=== PATIENT | male | born 1955 | race Caucasian/White ===

== ENCOUNTER 2016-11-24 07:09 | Observation (INO) | payer BC ==
[2016-11-24] MEDS ORDERED: NITROGLYCERIN OINT 1 INCH/GM PACKET TOPICAL STA (07:33)
[2016-11-24] MEDS ORDERED: IPRATROPIUM-ALBUTEROL 3 ML NEB INHALATION STA (07:33)
[2016-11-24] MEDS ORDERED: ASPIRIN 81 MG CHEW PO STA (07:33)
[2016-11-24] MEDS ORDERED: methylPREDNISolone SOD SUCCI 125 MG/2 ML VIAL IV STA (07:33)
--- NOTE | 2016-11-24 07:35 | ED ---
General Adult HPI - General Chief complaint: Chest Pain Stated complaint: chest tightness, sob Time Seen by Provider: 11/24/16 07:15 Source: patient, RN notes reviewed Mode of arrival: wheelchair Limitations: no limitations - History of Present Illness Initial comments: This is a 61-year-old male with past medical history significant for 40+ years of smoking. Patient comes into the emergency department today stating he has been having shortness of breath for approximately 1 month. Patient states over the last week he's been having intermittent chest pain which is something new for him. Patient describes the chest pain as a heaviness. Patient denies any radiation of the pain. Patient denies any diaphoresis. Patient denies any nausea with the pain. Patient states discomfort is currently here however it comes and goes and he does not notice it being associated with exercise. Patient states she's never felt this before and has what concerned him. Patient also complains of significant cough but no sputum production. Patient denies any fever chills. Patient denies any abdominal pain. Patient denies any lightheadedness dizziness or syncopal episode. Patient denies any headache patient denies numbness weakness. - Related Data Home Medications Medication Instructions Recorded Confirmed Aspirin [Adult Low Dose Aspirin EC] 81 mg PO DAILY 04/30/15 11/24/16 Atorvastatin [Lipitor] 80 mg PO HS 04/30/15 11/24/16 Clopidogrel [Plavix] 75 mg PO DAILY 04/30/15 11/24/16 Metoprolol Tartrate [Lopressor] 25 mg PO BID 04/30/15 11/24/16 Multivitamin [Men's Multi-Vitamin] 1 tab PO DAILY 04/30/15 11/24/16 Nitroglycerin Sl Tabs [Nitrostat] 0.4 mg SUBLINGUAL Q5M PRN 04/30/15 11/24/16 Previous Rx's Medication Instructions Recorded Albuterol Inhaler [Ventolin Hfa 2 puff INHALATION RT-Q6H PRN #1 04/30/15 Inhaler] inhaler Lisinopril [Zestril] 20 mg PO BID tab 04/30/15 Allergies Allergy/AdvReac Type Severity Reaction Status Date / Time Penicillins AdvReac Nausea & Verified 11/24/16 07:23 Vomiting Review of Systems ROS Statement: Those systems with pertinent positive or pertinent negative responses have been documented in the HPI. ROS Other: All systems not noted in ROS Statement are negative. Past Medical History Past Medical History: Chest Pain / Angina, COPD, GERD/Reflux, Hyperlipidemia, Hypertension, Myocardial Infarction ([place]) Additional Past Medical History / Comment(s): 04/30/15 Pt presented to [facility] ER with L mild, constane achy chest pain that radiated to L arm and he had associated dyspnea. Last Myocardial Infarction Date:: 05/02/13 History of Any Multi-Drug Resistant Organisms: MRSA Date of last positivie culture/infection: 2006 or 2007 MDRO Source:: face, nose, R arm sores Past Surgical History: Heart Catheterization With Stent, Orthopedic Surgery, Tonsillectomy Additional Past Surgical History / Comment(s): 05/02/13 PTCA with stent to RCA and LCX. R knee artrhroscopy. Past Anesthesia/Blood Transfusion Reactions: No Reported Reaction Date of Last Stent Placement:: 05/02/13 Past Psychological History: No Psychological Hx Reported Additional Psychological History / Comment(s): Pt lives alone. He is independent. He uses no assistive device. He drives a car. Smoking Status: Current every day smoker Past Alcohol Use History: None Reported Additional Past Alcohol Use History / Comment(s): Pt states he started smoking at age 12. He is a ppd smoker. Past Drug Use History: None Reported - Past Family History Father Family Medical History: Myocardial Infarction ([place]) Additional Family Medical History / Comment(s): Father of [place] at age 60 yrs. Mother Family Medical History: Dementia, Diabetes Mellitus Additional Family Medical History / Comment(s): Mother in her 80s General Exam - General Exam Comments Initial Comments: GENERAL: Patient is well-developed and well-nourished. Patient is nontoxic and well- hydrated and is in mild distress. ENT: Neck is soft and supple. No significant lymphadenopathy is noted. Oropharynx is clear. Moist mucous membranes. Neck has full range of motion without eliciting any pain. EYES: The sclera were anicteric and conjunctiva were pink and moist. Extraocular movements were intact and pupils were equal round and reactive to light. Eyelids were unremarkable. PULMONARY: Patient is diffusely wheezing. CARDIOVASCULAR: There is a regular rate and rhythm without any murmurs gallops or rubs. ABDOMEN: Soft and nontender with normal bowel sounds. No palpable organomegaly was noted. There is no palpable pulsatile mass. SKIN: Skin is clear with no lesions or rashes and otherwise unremarkable. NEUROLOGIC: Patient is alert and oriented x3. Cranial nerves II through XII are grossly intact. Motor and sensory are also intact. Normal speech, volume and content. Symmetrical smile. MUSCULOSKELETAL: Normal extremities with adequate strength and full range of motion. No lower extremity swelling or edema. No calf tenderness. LYMPHATICS: No significant lymphadenopathy is noted PSYCHIATRIC: Normal psychiatric evaluation. Normal interpersonal interactions appears functionally intact in deals appropriately with others. No signs of depression. No signs of anxiety. Limitations: no limitations Course Vital Signs 11/24/16 11/24/16 11/24/16 07:18 08:08 08:18 Temperature 97.0 F L Pulse Rate 89 80 88 Respiratory 18 Rate Blood Pressure 159/86 O2 Sat by Pulse 94 L Oximetry Medical Decision Making - Medical Decision Making EKG shows normal sinus rhythm at [address] interval is 150 QRS is 78 QT interval 344 QTC is 409 per patient's EKG shows no ST segment elevation or depression or T wave abnormalities are noted Chest x-ray shows no acute abnormality. Patient's received reading treatments and steroids he still wheezing I will give him another breathing treatment. I spoke with Dr. Hodges he agreed to admit the patient admitted the patient I wrote admitting orders. I will repeat cardiac enzymes. I also put the patient on oral antibiotics secondary to the fact that he states he is coughing up colored sputum for quite a while and it seems to be getting worse. - Lab Data Result diagrams: 11/24/16 07:20 11/24/16 07:20 Lab Results 11/24/16 11/24/16 11/24/16 Range/Units 07:20 07:20 07:20 WBC 6.7 (3.8-10.6) k/uL RBC 5.19 (4.30-5.90) m/uL Hgb 16.0 (13.0-17.5) gm/dL Hct 48.5 (39.0-53.0) % MCV 93.5 (80.0-100.0) fL MCH 30.8 (25.0-35.0) pg MCHC 32.9 (31.0-37.0) g/dL RDW 14.2 (11.5-15.5) % Plt Count 203 (150-450) k/uL Neutrophils % 61 % Lymphocytes % 21 % Monocytes % 6 % Eosinophils % 9 % Basophils % 1 % Neutrophils # 4.1 (1.3-7.7) k/uL Lymphocytes # 1.4 (1.0-4.8) k/uL Monocytes # 0.4 (0-1.0) k/uL Eosinophils # 0.6 (0-0.7) k/uL Basophils # 0.1 (0-0.2) k/uL PT (9.0-12.0) sec INR (<1.1) APTT (22.0-30.0) sec Sodium 135 L (137-145) mmol/L Potassium 4.4 (3.5-5.1) mmol/L Chloride 98 (98-107) mmol/L Carbon Dioxide 24 (22-30) mmol/L Anion Gap 13 mmol/L BUN 13 (9-20) mg/dL Creatinine 0.84 (0.66-1.25) mg/dL Est GFR (MDRD) Af Amer >60 (>60 ml/min/1.73 sqM) Est GFR (MDRD) Non-Af >60 (>60 ml/min/1.73 sqM) Glucose 146 H (74-99) mg/dL Calcium 9.6 (8.4-10.2) mg/dL Magnesium 2.1 (1.6-2.3) mg/dL Total Bilirubin 0.7 (0.2-1.3) mg/dL AST 26 (17-59) U/L ALT 33 (21-72) U/L Alkaline Phosphatase 65 (38-126) U/L Total Creatine Kinase 94 (55-170) U/L CK-MB (CK-2) 1.6 (0.0-2.4) ng/mL CK-MB (CK-2) Rel Index 1.7 Troponin I <0.012 (0.000-0.034) ng/mL Total Protein 7.4 (6.3-8.2) g/dL Albumin 4.5 (3.5-5.0) g/dL 11/24/16 Range/Units 07:20 WBC (3.8-10.6) k/uL RBC (4.30-5.90) m/uL Hgb (13.0-17.5) gm/dL Hct (39.0-53.0) % MCV (80.0-100.0) fL MCH (25.0-35.0) pg MCHC (31.0-37.0) g/dL RDW (11.5-15.5) % Plt Count (150-450) k/uL Neutrophils % % Lymphocytes % % Monocytes % % Eosinophils % % Basophils % % Neutrophils # (1.3-7.7) k/uL Lymphocytes # (1.0-4.8) k/uL Monocytes # (0-1.0) k/uL Eosinophils # (0-0.7) k/uL Basophils # (0-0.2) k/uL PT 10.0 (9.0-12.0) sec INR 1.0 (<1.1) APTT 25.8 (22.0-30.0) sec Sodium (137-145) mmol/L Potassium (3.5-5.1) mmol/L Chloride (98-107) mmol/L Carbon Dioxide (22-30) mmol/L Anion Gap mmol/L BUN (9-20) mg/dL Creatinine (0.66-1.25) mg/dL Est GFR (MDRD) Af Amer (>60 ml/min/1.73 sqM) Est GFR (MDRD) Non-Af (>60 ml/min/1.73 sqM) Glucose (74-99) mg/dL Calcium (8.4-10.2) mg/dL Magnesium (1.6-2.3) mg/dL Total Bilirubin (0.2-1.3) mg/dL AST (17-59) U/L ALT (21-72) U/L Alkaline Phosphatase (38-126) U/L Total Creatine Kinase (55-170) U/L CK-MB (CK-2) (0.0-2.4) ng/mL CK-MB (CK-2) Rel Index Troponin I (0.000-0.034) ng/mL Total Protein (6.3-8.2) g/dL Albumin (3.5-5.0) g/dL Disposition Clinical Impression: COPD with acute exacerbation, Bronchitis, acute, Chest pain Disposition: ADMITTED IP TO THIS [facility] Referrals: None,Stated [Primary Care Provider] - 1-2 days Time of Disposition: 09:10
[2016-11-24 08:13] LABS: Basophils # (A) 0.1 k/uL (0-0.2); Basophils % (A) 1 %; CH 31.1; CHCM 33.4; Eosinophils # (A) 0.6 k/uL (0-0.7); Eosinophils % (A) 9 %; HCT 48.5 % (39.0-53.0); HDW 2.49; Luc # (Auto) 0.15; Luc % (Auto) 2; Lymphocytes # (A) 1.4 k/uL (1.0-4.8); Lymphocytes % (A) 21 %; MCH 30.8 pg (25.0-35.0); MCHC 32.9 g/dL (31.0-37.0); MCV 93.5 fL (80.0-100.0); Mean Platelet Volume 6.6; Monocytes # (A) 0.4 k/uL (0-1.0); Monocytes % (A) 6 %; Neutrophils # (A) 4.1 k/uL (1.3-7.7); Neutrophils % (A) 61 %; RBC 5.19 m/uL (4.30-5.90); RDW 14.2 % (11.5-15.5); WBC 6.7 k/uL (3.8-10.6); WBC (Perox) 5.99
[2016-11-24 08:22] LABS: Partial Thromboplastin Time 25.8 sec (22.0-30.0)
[2016-11-24 08:30] LABS: ALT 33 U/L (21-72); AST 26 U/L (17-59); Alkaline Phosphatase 65 U/L (38-126); Anion Gap 13 mmol/L; Blood Urea Nitrogen 13 mg/dL (9-20); Calcium 9.6 mg/dL (8.4-10.2); Carbon Dioxide 24 mmol/L (22-30); Chloride 98 mmol/L (98-107); Glucose 146 mg/dL (74-99); Magnesium 2.1 mg/dL (1.6-2.3); Non-African American GFR(MDRD) >60 (>60 ml/min/1.73 sqM); Potassium 4.4 mmol/L (3.5-5.1); Sodium 135 mmol/L (137-145); Total Bilirubin 0.7 mg/dL (0.2-1.3); Total Protein 7.4 g/dL (6.3-8.2)
--- NOTE | 2016-11-24 08:40 | XR ---
EXAMINATION TYPE: XR chest 2V DATE OF EXAM: 11/24/2016 COMPARISON: Chest x-ray April 30, 2015. HISTORY: Difficulty in breathing for a few weeks. TECHNIQUE: Frontal and lateral views of the chest are obtained. FINDINGS: There is chronic parenchymal change without suspicious focal air space opacity, pleural ef fusion, or pneumothorax seen. The cardiac silhouette size is within normal limits. The osseous str uctures are intact. IMPRESSION: Chronic emphysematous change without acute pulmonary process.
[2016-11-24 08:45] LABS: Creatine Kinase 94 U/L (55-170)
[2016-11-24 08:57] LABS: Creatine Kinase MB 1.6 ng/mL (0.0-2.4); Troponin I <0.012 ng/mL (0.000-0.034)
[2016-11-24] MEDS ORDERED: IPRATROPIUM-ALBUTEROL 3 ML NEB INHALATION PRN (09:10)
[2016-11-24 09:48] VITALS: RESP 16; TEMP 97.8
[2016-11-24] MEDS ORDERED: methylPREDNISolone SOD SUCCI 125 MG/2 ML VIAL IV SCH (12:00)
[2016-11-24 13:10] VITALS: BP 140/71; PULSE 89
[2016-11-24] MEDS ORDERED: predniSONE 20 MG TAB PO STA (13:10)
--- NOTE | 2016-11-24 19:00 | HP ---
DATE OF ADMISSION: 11/24/2016 This dictation is both H&P and discharge summary. HISTORY AND PHYSICAL EXAMINATION/DISCHARGE SUMMARY: 61-year-old who came in with complaints of shortness of breath significantly resolved at this point of time. The patient is having significant shortness of breath for about a week. Patient continues to smoke. The patient stopped smoking, only smoking 1 or 2 cigarettes per day since his illness. Patient will try and quit smoking. Extensive counselling was provided regarding that. Patient is feeling better at this point of time. We are ambulating in the hallway. If he is doing okay, the patient will be discharged today on weaning dose of steroids. The patient chest x-ray did not show any pneumonia and patient does not use any oxygen at home. Patient is being treated for COPD exacerbation. Patient does have musculoskeletal chest pain for which he got a troponin and an EKG both of which are fine. I will discharge the patient to follow with the primary care physician today. REVIEW OF SYSTEMS: CONSTITUTIONAL: No fever, no malaise, no fatigue. HEENT: No recent visual problems or hearing problems. Denied any sore throat. CARDIOVASCULAR: No chest pain, orthopnea, PND, no palpitations, no syncope. PULMONARY: as described in HPI. GASTROINTESTINAL: No diarrhea, no nausea, no vomiting, no abdominal pain. Normoactive bowel sounds. NEUROLOGICAL: No headaches, no weakness, no numbness. HEMATOLOGICAL: Denies any bleeding or petechiae. GENITOURINARY: Denies any burning micturition, frequency, or urgency. MUSCULOSKELETAL/RHEUMATOLOGICAL: Denies any joint pain, swelling, or any muscle pain. ENDOCRINE: Denies any polyuria or polydipsia. The rest of the 14 point review of systems is negative. The patient is otherwise clinically doing well and the patient will be discharged today. Home Medications include: 1. Aspirin. 2. Atorvastatin. 3. Plavix. 4. Metoprolol. 5. Multivitamin. 6. Nitroglycerine. 7. Lisinopril. ALLERGIES: PENICILLIN. PAST MEDICAL HISTORY: COPD. Gastroesophageal reflux disease, hyperlipidemia, hypertension, myocardial infarction, coronary artery disease in the past and patient has cardiac catheterization and stent placement in the past, orthopedic surgery, tonsillectomy, MRSA in the past. Patient does smoke and smokes about normally a pack a day, but has not been smoking that much because of his illness. SOCIAL HISTORY: The denied any alcohol abuse or any drug abuse. FAMILY HISTORY: Father had myocardial infarction, age 60, mother had dementia, diabetes mellitus. PHYSICAL EXAMINATION: Temperature 97.8, pulse of 80, respiratory rate of 16, blood pressure is 136/70, saturating at 93% on room air. GENERAL: The patient is alert and oriented x3, not in any acute distress. Well developed, well nourished. HEENT: Pupils are round and equally reacting to light. EOMI. No scleral icterus. No conjunctival pallor. Normocephalic, atraumatic. No pharyngeal erythema. No thyromegaly. CARDIOVASCULAR: S1 and S2 present. No murmurs, rubs, or gallops. PULMONARY: Mildly decreased air entry into bilateral lung manzano. No wheezing was appreciated. No crackles were appreciated. ABDOMEN: Soft, nontender, nondistended, normoactive bowel sounds. No palpable organomegaly. MUSCULOSKELETAL: No joint swelling or deformity. EXTREMITIES: No cyanosis, clubbing, or pedal edema. NEUROLOGICAL: Gross neurological examination did not reveal any focal deficits. SKIN: No rashes. LABORATORY DATA: CBC, CMP are within normal limits. EKG showed sinus rhythm. ASSESSMENT AND PLAN: 1. Chronic obstructive pulmonary disease exacerbation, improved shortness of breath. Patient can be discharged on oral steroids and inhalational treatments and the patient will be prescribed Spiriva as well. 2. Chest pain. One set of troponins negative. We will do another set of troponins before his discharge although patient's chest pain is completely musculoskeletal secondary to coughing which completely resolved at this point of time and EKGs is within normal limits. 3. Coronary artery disease. 4. Continue nicotine abuse. Counseling was provided. 5. Hypertension. 6. Hyperlipidemia. For above-mentioned chronic medical problems, patient can continue his home medications. Patient will follow with Dr. Arthur Velarde in about 3 to 7 days. Activity as tolerated. Cardiac diet. Patient will be given doxycycline for bronchitis. Patient is coughing, unable to bring up anything at this point of time. This dictation is both H&P and discharge summary.
[2016-11-25] MEDS ORDERED: LEVOFLOXACIN 500 MG TAB PO SCH (09:00)
== END 2016-11-24 15:34 | disposition home or self-care (01) ==
LOC: EC 07:09 → 3OBS 09:10
PROVIDERS: ADMIT Internal Medicine; ATTEND Internal Medicine
DX: J44.1 Chronic obstructive pulmonary disease with (acute) exacerbation (principal); J44.0 Chronic obstructive pulmonary disease with (acute) lower respiratory infection; J20.9 Acute bronchitis, unspecified; I25.10 Atherosclerotic heart disease of native coronary artery without angina pectoris; I10 Essential (primary) hypertension; E78.5 Hyperlipidemia, unspecified; I25.2 Old myocardial infarction; Z79.82 Long term (current) use of aspirin; Z79.02 Long term (current) use of antithrombotics/antiplatelets; Z79.899 Other long term (current) drug therapy; Z88.0 Allergy status to penicillin; Z86.14 Personal history of Methicillin resistant Staphylococcus aureus infection; Z95.5 Presence of coronary angioplasty implant and graft; Z82.49 Family history of ischemic heart disease and other diseases of the circulatory system; Z83.3 Family history of diabetes mellitus; Z81.8 Family history of other mental and behavioral disorders; F17.210 Nicotine dependence, cigarettes, uncomplicated
CPT/HCPCS: 36415; 94640; 93005; 80053; 82550; 82553; 83735; 84484; 85025; 85610; 85730; 71020; 99285; 96374; G0378; J2930; J7512

== ENCOUNTER → 2016-12-01 | Outpatient (CLI) | payer BC ==
[2016-12-01 07:10] LABS: Basophils % (A) 0 %; CH 31.4; Eosinophils # (A) 0.1 k/uL (0-0.7); Eosinophils % (A) 1 %; HCT 49.7 % (39.0-53.0); HDW 2.34; HGB 15.7 gm/dL (13.0-17.5); Luc # (Auto) 0.19; Luc % (Auto) 2; Lymphocytes # (A) 3.1 k/uL (1.0-4.8); Lymphocytes % (A) 34 %; MCH 30.2 pg (25.0-35.0); MCHC 31.6 g/dL (31.0-37.0); MCV 95.6 fL (80.0-100.0); Mean Platelet Volume 6.4; Monocytes # (A) 0.8 k/uL (0-1.0); Monocytes % (A) 8 %; Neutrophils # (A) 4.9 k/uL (1.3-7.7); Neutrophils % (A) 54 %; RBC 5.19 m/uL (4.30-5.90); RDW 14.2 % (11.5-15.5); WBC 9.1 k/uL (3.8-10.6); WBC (Perox) 9.03
[2016-12-01 07:33] LABS: ALT 39 U/L (21-72); AST 23 U/L (17-59); Alkaline Phosphatase 56 U/L (38-126); Anion Gap 6 mmol/L; Blood Urea Nitrogen 16 mg/dL (9-20); Calcium 9.7 mg/dL (8.4-10.2); Carbon Dioxide 32 mmol/L (22-30); Chloride 96 mmol/L (98-107); Cholesterol 112 mg/dL (<200); Glucose 77 mg/dL (74-99); HDL Cholesterol 52 mg/dL (40-60); Non-African American GFR(MDRD) >60 (>60 ml/min/1.73 sqM); Sodium 134 mmol/L (137-145); Total Bilirubin 0.6 mg/dL (0.2-1.3); Total Protein 6.8 g/dL (6.3-8.2); Triglycerides 161 mg/dL (<150)
== END | disposition home or self-care (01) ==
LOC: LABWHC1 06:34
PROVIDERS: ATTEND Family Medicine
DX: I25.10 Atherosclerotic heart disease of native coronary artery without angina pectoris (principal)
CPT/HCPCS: 36415; 80053; 80061; 84443; 85025

== ENCOUNTER → 2016-12-30 | Outpatient (CLI) | payer BC | LOC: CPPFTMAIN 11:31 | PROVIDERS: ATTEND Family Medicine | DX: J44.9 Chronic obstructive pulmonary disease, unspecified (principal) | CPT/HCPCS: 94060; 94726; 94729 ==

== ENCOUNTER → 2017-03-20 | Outpatient (CLI) | payer BC ==
[2017-03-20 07:14] LABS: CH 32.1; CHCM 33.2; HCT 46.4 % (39.0-53.0); HDW 2.51; HGB 15.4 gm/dL (13.0-17.5); MCH 32.3 pg (25.0-35.0); MCHC 33.2 g/dL (31.0-37.0); MCV 97.3 fL (80.0-100.0); Mean Platelet Volume 7.5; RBC 4.77 m/uL (4.30-5.90); RDW 15.2 % (11.5-15.5); WBC 5.1 k/uL (3.8-10.6)
[2017-03-20 07:26] LABS: Anion Gap 9 mmol/L; Blood Urea Nitrogen 12 mg/dL (9-20); Carbon Dioxide 26 mmol/L (22-30); Chloride 102 mmol/L (98-107); Non-African American GFR(MDRD) >60 (>60 ml/min/1.73 sqM); Potassium 4.8 mmol/L (3.5-5.1); Sodium 137 mmol/L (137-145)
== END | disposition home or self-care (01) ==
LOC: LABPAT 06:42
PROVIDERS: ATTEND Internal Medicine Cardiovascular Disease
DX: Z01.812 Encounter for preprocedural laboratory examination (principal); I25.10 Atherosclerotic heart disease of native coronary artery without angina pectoris
CPT/HCPCS: 80051; 82565; 84520; 85027

== ENCOUNTER 2018-05-18 10:50 | Emergency (ER) | payer BC, OTHER ==
[2018-05-18 10:57] VITALS: RESP 18
--- NOTE | 2018-05-18 12:05 | XR ---
EXAMINATION TYPE: XR forearm bilateral DATE OF EXAM: 05/18/2018 COMPARISON: None HISTORY: Pain TECHNIQUE: Two-view bilateral forearms FINDINGS: No acute fractures are evident. Anterior fat pads are normal. No elevation posterior fat pa ds is evident. Radius aligns normally with the humerus joint spaces appear preserved. There is soft tissue swelling over the proximal to mid right forearm. Minimal prominence of the proxi mal left forearm may be present. IMPRESSION: 1. No acute osseous abnormality bilateral forearms. 2. Soft tissue swelling on the right anterior proximal forearm with milder soft tissue swelling noted on the left.
[2018-05-18 12:26] VITALS: BP 132/90; PULSE 68
--- NOTE | 2018-05-18 12:38 | ED ---
Upper Extremity HPI - General Chief Complaint: Extremity Injury, Upper Stated Complaint: arm injury-[facility] Time Seen by Provider: 05/18/18 11:03 Source: patient Mode of arrival: ambulatory Limitations: no limitations - History of Present Illness Initial Comments: 62-year-old female past medical history of CAD, COPD, hyperlipidemia and hypertension on Plavix presenting today for chief complaint of bruising of the forearms bilaterally. Patient states is at work, when he there was a falling part he extended his hands bilaterally to catch the item. He is unsure of the exact weight. He states immediately following he noticed bruising of the forearms bilaterally. He was told by his boss to present for evaluation. Patient denies any numbness tingling, paresthesias, decreased range of motion, loss of sensation. Patient does admit to pain at the area bruising, he states he does not think he broke any bones. Patient states he is able to fully range at the elbow, wrists and hands. Patient denies any head injury, fall, trauma to any other extremity. Patient has any shoulder pain, elbow pain or wrist pain. Remainder of ROS (-) patient denies any recent fever, chills, shortness of breath, chest pain, back pain, abdominal pain, nausea or vomiting, numbness or tingling, dysuria or hematuria, constipation or diarrhea, headaches or visual changes, or any other complaints. Upon arrival to emergency department patient's vital signs the acceptable limits, patient is well-appearing. - Related Data Home Medications Medication Instructions Recorded Confirmed Aspirin [Adult Low Dose Aspirin EC] 81 mg PO DAILY 04/30/15 05/18/18 Atorvastatin [Lipitor] 80 mg PO HS 04/30/15 05/18/18 Clopidogrel [Plavix] 75 mg PO BID 04/30/15 05/18/18 Lisinopril [Zestril] 20 mg PO BID 03/18/17 05/18/18 amLODIPine [Norvasc] 5 mg PO DAILY 03/18/17 05/18/18 Albuterol Inhaler [Ventolin Hfa 2 puff INHALATION RT-BID PRN 05/18/18 05/18/18 Inhaler] Fluticasone/Salmeterol [Advair 1 inhalation PO RT-BID 05/18/18 05/18/18 250-50 Diskus] Allergies Allergy/AdvReac Type Severity Reaction Status Date / Time varenicline [From Chantix] Allergy Diarrhea Verified 05/18/18 11:57 Penicillins AdvReac Nausea & Verified 05/18/18 11:57 Vomiting Review of Systems ROS Statement: Those systems with pertinent positive or pertinent negative responses have been documented in the HPI. ROS Other: All systems not noted in ROS Statement are negative. Constitutional: Denies: fever, chills ENT: Denies: ear pain, throat pain Respiratory: Denies: cough, dyspnea, wheezes, hemoptysis, stridor Cardiovascular: Denies: chest pain, palpitations, dyspnea on exertion Endocrine: Denies: fatigue Gastrointestinal: Denies: abdominal pain, nausea, vomiting, diarrhea, constipation, hematemesis, melena Genitourinary: Denies: urgency, dysuria, frequency, hematuria Musculoskeletal: Reports: as per HPI, myalgia. Denies: back pain Skin: Reports: as per HPI (Ecchymosis of the forearms bilaterally). Denies: rash Neurological: Denies: headache, weakness, numbness, paresthesias, confusion, abnormal gait Past Medical History Past Medical History: Coronary Artery Disease (CAD), Chest Pain / Angina, COPD, GERD/Reflux, Hyperlipidemia, Hypertension, Myocardial Infarction ([place]) Additional Past Medical History / Comment(s): 04/30/15 Pt presented to [facility] ER with L mild, constane achy chest pain that radiated to L arm and he had associated dyspnea. Last Myocardial Infarction Date:: 05/02/13 History of Any Multi-Drug Resistant Organisms: MRSA Date of last positivie culture/infection: 2006 or 2007 MDRO Source:: face, nose, R arm sores Past Surgical History: Heart Catheterization With Stent, Orthopedic Surgery, Tonsillectomy Additional Past Surgical History / Comment(s): 05/02/13 PTCA with stent to RCA and LCX. R knee artrhroscopy. Past Anesthesia/Blood Transfusion Reactions: No Reported Reaction Date of Last Stent Placement:: 05/02/13 Past Psychological History: No Psychological Hx Reported Smoking Status: Former smoker Past Alcohol Use History: None Reported Past Drug Use History: None Reported - Past Family History Father Family Medical History: Myocardial Infarction ([place]) Additional Family Medical History / Comment(s): Father of [place] at age 60 yrs. Mother Family Medical History: Dementia, Diabetes Mellitus Additional Family Medical History / Comment(s): Mother in her 80s General Exam - General Exam Comments Initial Comments: General: The patient is awake and alert, in no distress, and does not appear acutely ill. Eye: Pupils are equal, round and reactive to light, extra-ocular movements are intact. No nystagmus. There is normal conjunctiva bilaterally. No signs of icterus. Ears, nose, mouth and throat: There are moist mucous membranes and no oral lesions. Neck: The neck is supple, there is no tenderness or JVD. Cardiovascular: There is a regular rate and rhythm. No murmur, rub or gallop is appreciated. Respiratory: Lungs are clear to auscultation, respirations are non-labored, breath sounds are equal. No wheezes, stridor, rales, or rhonchi. Musculoskeletal: 10 cm right 3 cm hematomas present on the forearms ventral surface bilaterally appear equal in characteristic. Compartments are soft and compressible, no pallor extremity noted. Mild pain with palpation no noted penile proportion. Normal ROM, no tenderness at the elbows, shoulders, wrists and hands equally bilaterally.. Strength 5/5 with all joints of the upper extremities. Sensation intact of the upper extremities equally bilaterally. Radial pulses equal bilaterally 2+. Capillary refill < 2 seconds. She is able to pronate and supinate denies pain. Patient is able to make the okay, fingers crossed, thumbs up, finger opposition and extend the wrist. There is no signs of wristdrop. Radial, ulnar and median nerves intact bilaterally. Neurological: A&O x 3. CN II-XII intact, There are no obvious motor or sensory deficits. Coordination appears grossly intact. Speech is normal. Skin: Skin is warm and dry and no rashes or lesions are noted. No abrasions or lacerations noted Psychiatric: Cooperative, appropriate mood & affect, normal judgment. Limitations: no limitations Course Vital Signs 05/18/18 05/18/18 05/18/18 10:52 12:25 13:05 Temperature 98.2 F 98.1 F Pulse Rate 76 68 Respiratory 18 18 Rate Blood Pressure 170/92 132/90 O2 Sat by Pulse 98 97 Oximetry Medical Decision Making - Medical Decision Making X-ray negative for fracture. Patient has no musculoskeletal deficits, neurovascular intact. PE revealed hematomas of the forearms bilaterally. At this time feel patient is stable for discharge with instruction to use ice and heat over the area 20 minutes 3 times a day as well as a ibuprofen and Tylenol for pain management. Patient is agreeable plan. Return parameters discussed with patient, I discussed the signs and symptoms of an infected hematoma. Patient verbalized understanding of plan. Patient denied questions at this time. Case discussed with Dr. Brown reviewed all radiographic imaging. Dr. Brown agreed plan. Patient was discharged stable condition after discussing all findings. Disposition Clinical Impression: Traumatic hematoma of left forearm, Traumatic hematoma of right forearm Disposition: HOME SELF-CARE Condition: Good Instructions: Hematoma (ED) Additional Instructions: Please use medication as discussed. Please follow-up with family doctor in the next 2 days. Please apply heat and ice to the area as discussed. Please return to emergency room if the symptoms increase or worsen or for any other concerns, including fever, chills, warmth of hematoma/increasing pain. Is patient prescribed a controlled substance at d/c from ED?: No Referrals: Fariba Gunderson MD [Primary Care Provider] - 1-2 days Time of Disposition: 12:38
[2018-05-18 13:08] VITALS: TEMP 98.1
== END 2018-05-18 13:05 | disposition home or self-care (01) ==
LOC: EC 10:50
DX: S50.11XA Contusion of right forearm, initial encounter (principal); S50.12XA Contusion of left forearm, initial encounter; J44.9 Chronic obstructive pulmonary disease, unspecified; E78.5 Hyperlipidemia, unspecified; I10 Essential (primary) hypertension; I25.119 Atherosclerotic heart disease of native coronary artery with unspecified angina pectoris; I25.2 Old myocardial infarction; Z87.891 Personal history of nicotine dependence; Z88.0 Allergy status to penicillin; Z88.8 Allergy status to other drugs, medicaments and biological substances; Z79.02 Long term (current) use of antithrombotics/antiplatelets; Z79.51 Long term (current) use of inhaled steroids; Z79.82 Long term (current) use of aspirin; Z79.899 Other long term (current) drug therapy; Z95.818 Presence of other cardiac implants and grafts; Z86.14 Personal history of Methicillin resistant Staphylococcus aureus infection; W20.8XXA Other cause of strike by thrown, projected or falling object, initial encounter; Y93.89 Activity, other specified; Y92.69 Other specified industrial and construction area as the place of occurrence of the external cause; Y99.0 Civilian activity done for income or pay
CPT/HCPCS: 99283

== ENCOUNTER → 2018-10-25 | Outpatient (CLI) | payer BC | END | disposition home or self-care (01) | LOC: LABWHC1 08:13 | PROVIDERS: ATTEND Internal Medicine Cardiovascular Disease | DX: I25.10 Atherosclerotic heart disease of native coronary artery without angina pectoris (principal) | CPT/HCPCS: 36415; 83704 ==

== ENCOUNTER → 2018-12-28 | Outpatient (CLI) | payer BC | END | disposition home or self-care (01) | LOC: CPPFTMAIN 09:52 | PROVIDERS: ATTEND Family Medicine | DX: J44.9 Chronic obstructive pulmonary disease, unspecified (principal); R94.2 Abnormal results of pulmonary function studies | CPT/HCPCS: 94060; 94726; 94729 ==

== ENCOUNTER → 2019-06-17 | Outpatient (CLI) | payer MEDICARE ==
--- NOTE | 2019-06-17 14:24 | CTL ---
EXAMINATION TYPE: CT Low Dose Lung DATE OF EXAM ORDERED: 06/17/2019 COMPARISON: None HISTORY: . Low Dose CT Lung Screening CT DLP: 88.[address] CTDI: 2.5 mGy IV CONTRAST USED: None. SCREENING VISIT: First visit COMPARISON: None. TECHNIQUE: Low dose computed tomography scan was performed through the chest at 1 millimeter thick se ctions and reconstructed images in the coronal plane at [address] DIAGNOSTIC QUALITY: Satisfactory FINDINGS: LUNG NODULES: Not presentLeft lung: no nodules identified.Right lung: no nodules identified. Apical parenchymal scarring. Emphysematous changes noted. Hyperinflation compatible with COPD. Mild s cattered subpleural fibrosis. LUNGS: COPD: Severity: None Fibrosis: Severity:None Lymph nodes: None Other findings: None RIGHT PLEURAL SPACE: Effusion: None Calcification: None Thickening: None Pneumothorax: None LEFT PLEURAL SPACE: Effusion: None Calcification: None Thickening: None Pneumothorax: None HEART: Heart Size: Mildly enlarged Coronary calcification: Severe Pericardial effusion: None OTHER FINDINGS: Upper abdomen: No significant abnormality Bony thorax: Degenerative changes Supraclavicular region: No significant abnormalityOther: No significant abnormalityI IMPRESSION: No concerning pulmonary nodules or masses detected. FOLLOW UP CT CHEST RECOMMENDATION: Follow-up screening in one year CT LUNG RAD: LUNG RAD CATEGORY 1 benign
== END | disposition home or self-care (01) ==
LOC: RADCTMAIN 12:21
PROVIDERS: ATTEND Family Medicine
DX: Z12.2 Encounter for screening for malignant neoplasm of respiratory organs (principal); Z87.891 Personal history of nicotine dependence

== ENCOUNTER → 2019-07-07 | Day surgery (SDC) | payer MEDICARE ==
[2019-07-06 08:44] VITALS: BMI 23.2
[~2019-07-07] MED LIST: LACTATED RINGERS 1,000 ML IV SCH; LIDOCAINE 1% (10MG/ML) FOR IV START INTRADERMA ONE
[2019-07-07 10:41] VITALS: TEMP 97.4
--- NOTE | 2019-07-07 11:35 | P.PCN ---
Date of Procedure: 07/07/19 Procedure(s) Performed: BRIEF HISTORY: Patient is a 64-year-old pleasant 8 male scheduled for an elective colonoscopy as a part of screening for colorectal neoplasia. PROCEDURE PERFORMED: Colonoscopy. PREOPERATIVE DIAGNOSIS: Screening for colon cancer. IV sedation per Anesthesia. PROCEDURE: After informed consent was obtained, the patient, was brought into the endoscopy unit. IV sedation was administered by Anesthesia under continuous monitoring. Digital rectal examination was normal. Initially the Olympus CF-160 flexible video colonoscope was then inserted in the rectum, gradually advanced into the cecum without any difficulty. Careful examination was performed as the scope was gradually being withdrawn. Ileocecal valve and the appendiceal orifice were visualized and appeared normal. Prep was excellent. Mucosa of the cecum, ascending colon, transverse colon, descending colon, sigmoid colon, and rectum appeared normal. Retroflexion was performed in the rectum and no lesions were seen. The patient tolerated the procedure well. IMPRESSION: Normal-appearing colon from rectum to cecum with no evidence of colorectal neoplasia . RECOMMENDATIONS: Findings of this examination were discussed with the patient as well as his family. He was advised to have a repeat screen colonoscopy in 10 years.
[2019-07-07 11:41] VITALS: PULSE 86; RESP 16
[2019-07-07 12:00] VITALS: BP 136/72
--- NOTE | 2019-07-07 13:03 | P.CRDCN ---
History of Present Illness History of present illness: HISTORY OF PRESENTING ILLNESS This is a pleasant 64-year-old male past medical history significant for coronary artery disease status post PCI, COPD, hypertension, dyslipidemia and chronic nicotine dependence. He follows in the office with Dr. Alvares. We have been asked to see in consultation for low heart rate. He came to the hospital this morning for a routine screening colonoscopy with Dr. Palumbo. After the procedure his heart rate was noted to be low in the mid-40's. An EKG was obtained revealing sinus mechanism with frequent PVC's in a bigemical pattern. He is seen and examined resting comfortably in bed with family at the bedside. He denies feeling dizzy, light headed, short of breath or diaphoretic. At home he takes lopressor 25 mg daily, lisinopril 10 mg BID, amlodipine 5 mg daily, plavix 75 mg daily, atorvastatin 80 mg daily and aspirin 81 mg daily. He took a ll of his meds except his beta kali prior to the colonoscopy. REVIEW OF SYSTEMS At the time of my exam: CONSTITUTIONAL: Denies fever or chills. CARDIOVASCULAR: Denies chest pain, shortness of breath, orthopnea, PND or palpitations. RESPIRATORY: Denies cough. GASTROINTESTINAL: Denies abdominal pain, diarrhea, constipation, nausea or vomiting. MUSCULOSKELETAL: Denies myalgias. NEUROLOGIC: Denies numbness, tingling or weakness. ENDOCRINE: Denies fatigue, weight change, polydipsia or polyurina. GENITOURINARY: Denies burning, hematuria or urgency with micturation. HEMATOLOGIC: Denies history of anemia or bleeding. PHYSICAL EXAMINATION Blood pressure 136/72 heart rate 86 afebrile and maintaining oxygen saturation on room air. CONSTITUTIONAL: No apparent distress. HEENT: Head is normocephalic. Pupils are equal, round. Sclerae anicteric. Mucous membranes of the mouth are moist. No JVD. No carotid bruit. CHEST EXAMINATION: Faint expiratory wheeze. No rales or rhonchi. No chest wall tenderness is noted on palpation or with deep breathing. HEART EXAMINATION: Irregular rate and rhythm. S1, S2 heard. No murmurs, gallops or rub. ABDOMEN: Soft, nontender. Positive bowel sounds. EXTREMITIES: 2+ peripheral pulses, no lower extremity edema and no calf tenderness. NEUROLOGIC EXAMINATION: Patient is awake, alert and oriented x3. ASSESSMENT Bradycardia, bigeminy noted on EKG History of coronary artery disease s/p complex PCI maintained on dual anti- platelet therapy Hypertension Dyslipidemia Chronic nicotine dependence PLAN Portable bedside monitor is reading heart rate of 46, however on auscultation his heart rate is in the 60-70 range. The portable pulse ox that is monitoring his hear rate is not capturing accurately due to PVC's. Stable for discharge from a cardiac perspective. Advised him to continue his cardiac medications as ordered and stop in the office upon discharge to pick-up a 24-hour Holter monitor. Thank you kindly for this consultation. Nurse Practitioner note has been reviewed, I agree with a documented findings and plan of care. Patient was seen and examined. Past Medical History Past Medical History: Coronary Artery Disease (CAD), Chest Pain / Angina, COPD, GERD/Reflux, Hyperlipidemia, Hypertension, Myocardial Infarction ([place]) Additional Past Medical History / Comment(s): 04/30/15 Pt presented to [facility] ER with L mild, constane achy chest pain that radiated to L arm and he had associated dyspnea. Last Myocardial Infarction Date:: 05/02/13 History of Any Multi-Drug Resistant Organisms: MRSA Date of last positivie culture/infection: 2006 or 2007 MDRO Source:: face, nose, R arm sores Past Surgical History: Heart Catheterization With Stent, Orthopedic Surgery, Tonsillectomy Additional Past Surgical History / Comment(s): Rt knee artrhroscopy, 6 cardiac stents Past Anesthesia/Blood Transfusion Reactions: No Reported Reaction Date of Last Stent Placement:: 06/2017 Smoking Status: Current some day smoker - Past Family History Father Family Medical History: Myocardial Infarction ([place]) Additional Family Medical History / Comment(s): Father of [place] at age 60 yrs. Mother Family Medical History: No Reported History Additional Family Medical History / Comment(s): Mother in her 80s Medications and Allergies Home Medications Medication Instructions Recorded Confirmed Type Aspirin [Adult Low Dose Aspirin EC] 81 mg PO DAILY 04/30/15 07/06/19 History Atorvastatin [Lipitor] 80 mg PO HS 04/30/15 07/06/19 History Clopidogrel [Plavix] 75 mg PO DAILY 04/30/15 07/06/19 History Lisinopril [Zestril] 10 mg PO BID 03/18/17 07/07/19 History amLODIPine [Norvasc] 5 mg PO DAILY 03/18/17 07/06/19 History Albuterol Inhaler [Ventolin Hfa 2 puff INHALATION BID PRN 05/18/18 07/07/19 History Inhaler] Fluticasone/Salmeterol [Advair 1 puff INHALATION BID 05/18/18 07/06/19 History 250-50 Diskus] Metoprolol Tartrate [Lopressor] 25 mg PO DAILY 12/14/18 07/07/19 History Allergies Allergy/AdvReac Type Severity Reaction Status Date / Time Penicillins AdvReac Nausea & Verified 07/06/19 08:32 Vomiting varenicline [From Chantix] AdvReac Diarrhea Verified 07/06/19 08:32 Physical Exam Vitals: Vital Signs Temp Pulse Resp BP Pulse Ox 07/07/19 11:59 86 16 136/72 99 07/07/19 11:37 86 16 93/47 99 07/07/19 10:10 97.4 F L 75 18 165/72 98 Intake and Output 07/06/19 07/07/19 07/07/19 22:59 06:59 14:59 Intake Total 500 Balance 500 Intake: IV 500 Other: Weight 69.3 kg Results Current Medications Generic Name Dose Route Start Last Admin Trade Name Freq PRN Reason Stop Dose Admin Lactated Ringer's 1,000 mls @ 20 mls/hr 07/07/19 05:48 07/07/19 10:35 Lactated Ringers IV 500 mls .Q24H HELADIO Administration Intake and Output 07/06/19 07/07/19 07/07/19 22:59 06:59 14:59 Intake Total 500 Balance 500 Intake: IV 500 Other: Weight 69.3 kg Patient Weight 07/08/19 06:59 Weight 69.3 kg
== END | disposition home or self-care (01) ==
LOC: ORWHC2ENDO 09:40
PROVIDERS: ATTEND Internal Medicine Gastroenterology
DX: Z12.11 Encounter for screening for malignant neoplasm of colon (principal); I49.3 Ventricular premature depolarization; I25.10 Atherosclerotic heart disease of native coronary artery without angina pectoris; I25.2 Old myocardial infarction; I10 Essential (primary) hypertension; J44.9 Chronic obstructive pulmonary disease, unspecified; K21.9 Gastro-esophageal reflux disease without esophagitis; E78.5 Hyperlipidemia, unspecified; F17.200 Nicotine dependence, unspecified, uncomplicated; Z86.14 Personal history of Methicillin resistant Staphylococcus aureus infection; Z95.5 Presence of coronary angioplasty implant and graft; Z90.89 Acquired absence of other organs; Z98.890 Other specified postprocedural states; Z79.02 Long term (current) use of antithrombotics/antiplatelets; Z79.82 Long term (current) use of aspirin; Z79.51 Long term (current) use of inhaled steroids; Z79.899 Other long term (current) drug therapy; Z82.49 Family history of ischemic heart disease and other diseases of the circulatory system; Z88.0 Allergy status to penicillin; Z88.8 Allergy status to other drugs, medicaments and biological substances
CPT/HCPCS: 93005; G0121; 45378

== ENCOUNTER → 2020-08-28 | Outpatient (CLI) | payer MEDICARE ==
--- NOTE | 2020-08-28 09:21 | CTL ---
EXAMINATION TYPE: CT Low Dose Lung DATE OF EXAM ORDERED: 08/28/2020 HISTORY: J 44.9. Lung cancer screening CT DLP: 64.[address] CTDI: 1.95 mGy Automated exposure control for dose reduction was used. SCREENING VISIT: 2 COMPARISON: CT 06/17/2019 TECHNIQUE: Low dose computed tomography scan was performed through the chest at 1 mm thick sections a nd reconstructed images in the coronal plane at [address] DIAGNOSTIC QUALITY: Satisfactory FINDINGS: LUNG NODULES: None. LUNGS: COPD: Severity: Moderate Fibrosis: Severity: Pile Lymph nodes: None Other findings: None RIGHT PLEURAL SPACE: Effusion: None Calcification: None Thickening: None Pneumothorax: None LEFT PLEURAL SPACE: Effusion: None Calcification: None Thickening: None Pneumothorax: None HEART: Heart Size: Small Coronary calcification: Severe Pericardial effusion: None OTHER FINDINGS: Upper abdomen: Unremarkable Bony thorax: Thoracic spondylosis is present Supraclavicular region: Unremarkable Other: There is an aneurysm suspected at the root of aorta measuring approximately 4.4 cm IMPRESSION: Negative CT LUNG RAD AND CT CHEST RECOMMENDATION: Lung rad 1, follow-up 1 year S Modifier (other clinically significant findings): Yes, 0 aortic aneurysm, 1 coronary calcification
== END ==
LOC: RADCTMAIN 07:38
PROVIDERS: ATTEND Family Medicine
DX: Z12.2 Encounter for screening for malignant neoplasm of respiratory organs (principal); J44.9 Chronic obstructive pulmonary disease, unspecified
CPT/HCPCS: 71271; 93979

== ENCOUNTER → 2020-08-28 | Outpatient (CLI) | payer MEDICARE ==
--- NOTE | 2020-08-28 08:33 | US ---
EXAMINATION TYPE: US duplex aorta DATE OF EXAM: 08/28/2020 COMPARISON: NONE CLINICAL HISTORY: Z13.6 Screening for AAA. screening Medicare EXAM MEASUREMENTS: Abdominal Aorta: Proximal: 2.1 x 1.9cm Mid: 1.5 x 1.4cm Distal: 2.5 x 2.2cm Bifurcation: RT: 0.9 x 0.8cm LT: 1.1 x 0.8cm *Technical limitations due to overlying bowel content. Calcifications noted throughout aorta. No evid ence of AAA at this time as visualized Suboptimal study due to overlying bowel gas, visualized aorta shows atherosclerotic change and ectasi a without greater than 3.0 cm aneurysm. Aorta is seen through the iliac bifurcation. IMPRESSION: Suboptimal study without greater than 3.0 cm AAA.
== END ==
LOC: RADUSWWP 07:56
PROVIDERS: ATTEND Family Medicine
DX: Z13.6 Encounter for screening for cardiovascular disorders (principal)
CPT/HCPCS: 93979

== ENCOUNTER → 2020-12-19 | Outpatient (CLI) | payer MEDICARE ==
[2020-12-19 11:38] LABS: HCT 42.5 % (39.6-50.0); MCH 30.5 pg (27.0-32.0); MCHC 32.9 g/dL (32.0-37.0); MCV 92.6 fL (80.0-97.0); Mean Platelet Volume 10.5 fL (9.5-12.2); Platelet Count 219 X 10*3/uL (140-440); RBC 4.59 X 10*6/uL (4.40-5.60); RDW 14.3 % (11.5-14.5); WBC 5.99 X 10*3/uL (4.50-10.00)
[2020-12-19 13:05] LABS: African American GFR (CKD) 102.8 (60.0-200.0); Albumin 4.4 g/dL (3.80-4.90); Anion Gap 4.8 mmol/L (4.00-12.00); BUN/Creat Ratio 15.56 Ratio (12.00-20.00); Calcium 9.4 mg/dL (8.7-10.3); Carbon Dioxide 28.2 mmol/L (21.6-31.8); Non-African American GFR(CKD) 88.7 (60.0-200.0); Phosphorus 2.9 mg/dL (2.4-5.1); Potassium 4.1 mmol/L (3.5-5.5)
== END | disposition home or self-care (01) ==
LOC: LABWHC1 06:57
PROVIDERS: ATTEND Internal Medicine
DX: I50.31 Acute diastolic (congestive) heart failure (principal); R60.9 Edema, unspecified; R06.02 Shortness of breath
CPT/HCPCS: 36415; 80069; 83880; 85027

== ENCOUNTER → 2021-07-22 | Outpatient (CLI) | payer MEDICARE ==
--- NOTE | 2021-07-23 07:58 | CT ---
EXAMINATION TYPE: CT angio chest DATE OF EXAM: 07/22/2021 COMPARISON: CT lung studies August 28, 2020 HISTORY: h/o thoracic aneurysm CT DLP: 630.8 mGycm. Automated Exposure Control for Dose Reduction was Utilized. CONTRAST: CTA scan of the thorax is performed without and with IV Contrast, patient injected with 100 mL of Iso carmen 370, aneurysm protocol. 3D reconstructed images are created on an independent workstation and re viewed. FINDINGS: LUNGS: Moderate underlying emphysematous change is redemonstrated greatest in the upper lungs. Lungs are grossly clear. No concerning new nodules or masses. No pleural effusion or pneumothorax seen bila terally. MEDIASTINUM: Noncontrast images show no suspicious hyperdense material to suggest intramural hematoma . Postcontrast images show borderline aneurysm up to 4.0 cm at the aortic root coronal image 40 with ascending aorta measuring up to 3.5 cm in diameter. Normal 3 vessel origin from the aortic arch. Mild peripheral plaque in the arch descending into descending thoracic aorta. There are no greater than 1 cm hilar or mediastinal lymph nodes. No cardiomegaly or pericardial effusion is seen. Severe three -vessel coronary artery calcification and/or stents redemonstrated. OTHER: Mild multilevel spurring is seen. IMPRESSION: Ascending aortic aneurysm up to 4.0 cm in the aortic root is presumed stable from most re cent CT accounting for technical differences.
== END | disposition home or self-care (01) ==
LOC: RADCTMAIN 18:00
PROVIDERS: ATTEND Internal Medicine
DX: I71.2 Thoracic aortic aneurysm, without rupture (principal)
CPT/HCPCS: 82565; 84520; 71275; 36415; Q9967

== ENCOUNTER → 2021-08-15 | Outpatient (CLI) | payer MEDICARE ==
--- NOTE | 2021-08-15 16:30 | XR ---
EXAMINATION TYPE: XR foot complete LT, 3 views DATE OF EXAM: 08/15/2021 Comparison: None Clinical History: 66-year-old male M79.672 Left foot pain Findings: Poor delineation to the middle third Achilles tendon. Small posterior and plantar heel spurs. There m ay be mild soft tissue thickening at the origin of the plantar fascia on the lateral view. Type II ac cessory navicular. Mild degenerative spurring at the first MTP joint. No acute fracture, subluxation, or dislocation. Impression: 1. The middle third Achilles tendon is not well delineated. This may reflect chronic tendinopathy. If symptomatic here or there is an acute injury, MRI can further evaluate. 2. Small posterior and plantar heel spurs. Possible mild thickening at the origin of the plantar fasc ia which can be seen with plantar fasciitis. 3. Incidental type II accessory navicular which can become symptomatic in some patients. Correlate fo r any point tenderness.
== END | disposition home or self-care (01) ==
LOC: RADXRMAIN 15:06
PROVIDERS: ATTEND Family Medicine
DX: M77.32 Calcaneal spur, left foot (principal); Q66.89 Other specified congenital deformities of feet

== ENCOUNTER → 2022-04-16 | Outpatient (CLI) | payer MEDICARE ==
[2022-04-16 11:37] LABS: Chol/HDL Ratio 3.17 Ratio; LDL Cholesterol,Calculated 46.6 mg/dL (0.0-131.0); VLDL Calculation 17.18 mg/dL (5.00-40.00)
== END | disposition home or self-care (01) ==
LOC: LABWHC1 07:57
PROVIDERS: ATTEND Internal Medicine
DX: I25.10 Atherosclerotic heart disease of native coronary artery without angina pectoris (principal); E78.5 Hyperlipidemia, unspecified
CPT/HCPCS: 36415; 80061

== ENCOUNTER → 2023-09-11 | Outpatient (CLI) | payer MEDICARE ==
--- NOTE | 2023-09-11 09:11 | CTL ---
EXAMINATION TYPE: CT Low Dose Lung DATE OF EXAM: 09/11/2023 6:50 AM CLINICAL INDICATION:Male, 68 years old with history of Z12.2 LUNG CA SCREEN F17.210 NICOTINE DEPENDEN CE; current smoker, 1 pack a day for 30 years, COPD , history of tobacco use. COMPARISON: 08/28/2020, 06/17/2019 TECHNIQUE: CT scan of the chest obtained without contrast from approximately the lung apices through the upper abdomen. Axial, coronal and sagittal reformatted images were obtained. Low dose technique w as utilized for nodule screening purposes. CT DLP: 91.5 mGycm, Automated exposure control for dose reduction was used. CT Contrast: IV contrast used: None. Oral contrast used: None. FINDINGS: Lack of intravenous contrast and low dose technique limits the evaluation of the vascular and soft ti ssue structures. LUNGS: No evidence of focal consolidation. There is some subpleural mild hazy groundglass opacity sug gested in the posterolateral aspect of the right lower lobe, and at the lateral aspect of this there is an approximately 7.7 mm groundglass nodular focus, new from prior; infectious or inflammatory proc ess is favored, but warrants follow-up. Mild fibrosis similar to before. There are emphysematous bunn ges bilaterally, moderate in degree. NODULES: Other than the above, no clinically significant nodules are demonstrated. PLEURA: No sizeable pleural effusion or pneumothorax. AIRWAY: Central airways are patent. LOWER NECK: No significant findings. Visualized thyroid is unremarkable. MEDIASTINUM: No evidence of enlarged mediastinal or hilar nodes, in the limits of noncontrast exam.. HEART: Normal heart size. Severe coronary artery calcification and/or stents. No appreciable pericard ial effusion. VASCULATURE: Moderate atherosclerotic calcifications of the aorta and branches. There is again a dil ated appearance of the root of the aorta which measures up to approximately 4.3 cm, not well evaluate d by this exam but does not appear significantly changed from prior. Ascending aorta is 3.6 CM, desce nding is 2.7 CM. Pulmonary trunk measures about 2.5 CM, normal in size. Vessels otherwise not furthe r assessed without contrast. SOFT TISSUES/LYMPH NODES: Unremarkable soft tissues. Several stable nonenlarged axillary nodes are se en without evidence of bulky adenopathy. UPPER ABDOMEN: Partially seen left renal perinephric stranding, appears similar to 07/22/2021. Small s plenule is present. MUSCULOSKELETAL: Mild/moderate disc degeneration changes are present throughout the thoracolumbar spi ne. No acute findings. IMPRESSION: 1. Mild subpleural groundglass opacity in the right lower lobe, with a 7.7 mm groundglass nodular fo cus at its peripheral aspect, new from the prior study. 2. Otherwise, no clinically significant lung nodules. 3. Moderate emphysematous changes and mild fibrosis, similar to prior. 4. Similar dilated appearance of the root of the aorta measuring up to 4.[address] LUNG-RADS AND FOLLOWUP RECOMMENDATION: Lung-RADS Category 2, Benign. Based on imaging features or indolent behavior. Continue annual scree lorenza with LDCT in 12 months. C Modifier (Personal history of lung cancer?): No. S Modifier (Other clinically significant or potentially significant findings?): Yes (see below). Other significant or potentially significant abnormalities: Coronary arterial calcification moderat e or severe. Thoracic aortic aneurysm. Recommend smoking cessation (if current smoker), or continuation of smoking cessation (if prior smoke r). Annual screening for lung cancer with low-dose computed tomography is recommended in adults ages 55 to 77 years who have a 30 pack-year smoking history and currently smoke or have quit within the pa st 15 years. Screening should be discontinued once a person has not smoked for 15 years or develops a health problem that substantially limits life expectancy or the ability or willingness to have curat chris lung surgery. Lung-RADS v.2021 Link Here [email or web address]
== END | disposition home or self-care (01) ==
LOC: RADCTMAIN 06:21
PROVIDERS: ATTEND Family Medicine
DX: Z12.2 Encounter for screening for malignant neoplasm of respiratory organs (principal); J44.9 Chronic obstructive pulmonary disease, unspecified; J43.9 Emphysema, unspecified; J84.10 Pulmonary fibrosis, unspecified; I77.810 Thoracic aortic ectasia; R91.8 Other nonspecific abnormal finding of lung field; F17.210 Nicotine dependence, cigarettes, uncomplicated
CPT/HCPCS: 71271

== ENCOUNTER → 2024-04-22 | Outpatient (CLI) | payer MEDICARE ==
--- NOTE | 2024-04-22 11:34 | MM ---
Reason for Exam: Clinical finding. Baseline mammogram. Patient History: Brother had breast cancer at or over age 50. Prior Study Comparison: Patient's first Mammogram. No prior studies available for comparison. Tissue Density: There are scattered areas of fibroglandular density. Findings: Analyzed By CAD. Large flame-shaped subareolar density on the left and smaller then draped subareolar densities on the right. No significant mass, suspicious microcalcification or other discrete abnormality is seen. Overall Assessment: Incomplete: need additional imaging evaluation, BI-RAD 0 Management: Diagnostic Breast Ultrasound of both breasts. [facility], , 04/22/2024 11:32 AM. Electronically signed and approved by: Kris Blank M.D. Radiologist
--- NOTE | 2024-04-22 12:11 | USB ---
Reason for Exam: Clinical finding. Patient History: Brother had breast cancer at or over age 50. Technique: Method: Whole Breast Handheld. Findings: The whole breast of both breasts, the axilla of both breasts and the retroareolar of both breasts were scanned. A complete US of all four quadrants of the breast, axilla, and retro-areolar region were reviewed. No solid or cystic masses are identified on either side. There is dense subareolar fibroglandular tissue on the left. No axillary lymphadenopathy. Overall Assessment: Benign, BI-RAD 2 Management: Clinical Management of the left breast in 1 year. For left breast pain. Also, further clinical management of asymmetric left greater than right gynecomastia. Follow-up can be performed if any new or enlarging palpable abnormality is encountered. Results were given to the patient verbally at the time of exam. [facility], , 04/22/2024 12:07 PM. Electronically signed and approved by: Kris Blank M.D. Radiologist
== END | disposition home or self-care (01) ==
LOC: RADMAMWWP 10:34
PROVIDERS: ATTEND Family Medicine
DX: N63.22 Unspecified lump in the left breast, upper inner quadrant (principal); Z80.3 Family history of malignant neoplasm of breast
CPT/HCPCS: 77066; 76641; G0279; 77062

== ENCOUNTER → 2024-04-29 | Day surgery (SDC) | payer MEDICARE ==
[~2024-04-29] MED LIST changes: +ALPRAZolam 0.25 MG TAB PO PRN; +ALPRAZolam 0.5 MG TAB PO PRN; +ATORVASTATIN 80 MG TAB PO ONE; -LACTATED RINGERS 1,000 ML IV SCH; -LIDOCAINE 1% (10MG/ML) FOR IV START INTRADERMA ONE; +NITROGLYCERIN SL TABS 0.4 MG TAB SUBLINGUAL PRN
[2024-04-29] MEDS: IV FLUID CONTINUATION 1,000 ML IV ONE ×2 (10:20→13:30)
[2024-04-29] MEDS: SODIUM CHLORIDE 0.9% 1,000 ML in EMPTY BAG 1 BAG IV ONE (10:31)
[2024-04-29] MEDS: ASPIRIN 325 MG TAB PO ONE (10:32)
[2024-04-29 10:38] VITALS: TEMP 98.2
[2024-04-29 10:39] LABS: Basophils % (A) 1 %; Eosinophils # (A) 0.2 k/uL (0-0.7); Eosinophils % (A) 3 %; HCT 45.7 % (39.0-53.0); Lymphocytes # (A) 1.5 k/uL (1.0-4.8); Lymphocytes % (A) 26 %; MCH 31.2 pg (25.0-35.0); MCHC 32.8 g/dL (31.0-37.0); MCV 95.3 fL (80.0-100.0); Mean Platelet Volume 7.4; Monocytes # (A) 0.4 k/uL (0-1.0); Monocytes % (A) 6 %; Neutrophils # (A) 3.5 k/uL (1.3-7.7); Neutrophils % (A) 62 %; Platelet Count 177 k/uL (150-450); RBC 4.79 m/uL (4.30-5.90); RDW 13.5 % (11.5-15.5); WBC 5.7 k/uL (3.8-10.6)
[2024-04-29] MEDS: MIDAZOLAM 2 MG/2 ML VIAL IVP ONE (12:10)
[2024-04-29] MEDS: fentaNYL (PF) 50 MCG/ML 2 ML AMP IVP ONE (12:10)
[2024-04-29] MEDS: VERAPAMIL SYRINGE (5 MG/10 ML) INTRAARTER ONE (12:17)
[2024-04-29] MEDS: HEPARIN SODIUM 1,000 UN/ML (10ML VL) IVP ONE (12:17)
[2024-04-29] MEDS: LIDOCAINE 1% INJ 10MG/ML (20 ML MDV) SQ ONE (12:17)
[2024-04-29] MEDS: IOPAMIDOL-370 100ML BTL INJ ONE (12:40)
[2024-04-29] MEDS: HEPARIN SODIUM,PORCINE 10,000 UNIT in SODIUM CHLORIDE 0.9% 1,000 ML IRRIGATION PRN (12:41)
[2024-04-29] MEDS: HEPARIN SODIUM,PORCINE (1 ML) 2,500 UNIT in SODIUM CHLORIDE 0.9% 250 ML IRRIGATION PRN (12:41)
--- NOTE | 2024-04-29 13:45 | P.CARDCATH ---
Description of Procedure: PROCEDURES PERFORMED: Left heart catheterization, bilateral coronary angiography, ultrasound guided arterial access, RFR (iFR) of RCA INDICATION: Abnormal stress test CONSENT:I have discussed the risks, benefits and alternative therapies for the above-mentioned procedure and for both sedation/analgesia as well as necessary blood product administration, if indicated, as they pertain to this patient. The patient has indicated understanding and acceptance of the risks and procedures discussed. PROCEDURE: After the risks, benefits and alternatives of the above mentioned procedure explained in detail with the patient, informed consent was obtained. Patient was taken to the catheterization lab and prepped and draped in usual f ashion. Ultrasound guidance was used to assess for arterial access. 1% lidocaine was used to anesthetize the right radial artery. A 6-Filipino sheath was placed in the right radial artery using modified Seldinger technique and ultrasound guidance. Left coronary angiography was performed with a 5-Filipino JL 4.0 catheter and right coronary angiography was performed with a 6-Filipino AL1 catheter in various views. A 5-Filipino FR5 catheter was inserted into the left ventricle and pressure measurements were obtained. The decision was made to perform functional assessment of the PLV lesion. Heparin was given. Using a 6-Filipino AL 1.0 catheter, a 0.014 pressure wire was advanced in the proximal RCA and normalized. It was then advanced 1 cm distal to the PLV lesion and iFR (RFR) was performed and was normal at 0.99. There was no drift with pullback. The right radial sheath was removed and a TR band was placed with hemostasis achieved. The patient tolerated the procedure well. Patient was transported back to the post catheterization holding area in stable condition. Conscious Sedation: Patient was monitored under the direct supervision of myself for conscious sedation using Versed and fentanyl for a total duration of 19 minutes HEMODYNAMICS: Aorta: 118/72 LV: 124/2, LVEDP 4 SELECTIVE CORONARY ARTERIOGRAPHY: LEFT MAIN: The left main is a large caliber vessel which bifurcates into the LAD and circumflex. There is no significant stenosis. LEFT ANTERIOR DESCENDING CORONARY ARTERY: LAD is a large caliber vessel which wraps around to the apex. There is diffuse proximal to mid LAD 20-30% stenosis with almost aneurysmal mid LAD. There is a patent mid LAD stent with mild luminal irregularities.. LEFT CIRCUMFLEX CORONARY ARTERY: Left circumflex is a moderate caliber vessel with a patent proximal to mid circumflex stent with mild luminal irregularities. RIGHT CORONARY ARTERY: The right coronary artery is a large caliber vessel which gives off a PDA and PLV branch and is the dominant vessel. There is a patent mid RCA stents with mild tender 20% mid RCA stenosis and a proximal PLV 60-70% stenosis. FINAL IMPRESSION: 1. CAD as described above including 20-30% mid LAD, 10-20% RCA and 60-70% PLV stenosis 2. Low left sided filling pressures 3. Normal iFR (RFR) of PLV PLAN: 1. Aggressive risk factor modification per most recent ACC/AHA guidelines. 2. Follow-up in the office in 1-2 weeks.
[2024-04-29 17:03] VITALS: BP 147/78; PULSE 60; RESP 14
== END ==
LOC: CATHCVL 10:08
PROVIDERS: ATTEND Internal Medicine
DX: I25.118 Atherosclerotic heart disease of native coronary artery with other forms of angina pectoris (principal); I87.2 Venous insufficiency (chronic) (peripheral); I70.0 Atherosclerosis of aorta; I10 Essential (primary) hypertension; E78.5 Hyperlipidemia, unspecified; F17.210 Nicotine dependence, cigarettes, uncomplicated; J44.9 Chronic obstructive pulmonary disease, unspecified; Z88.0 Allergy status to penicillin; Z79.02 Long term (current) use of antithrombotics/antiplatelets; Z79.899 Other long term (current) drug therapy
CPT/HCPCS: 93458; 93799; 85025; 99152; C1769 ×2; C1894; J2250; J1644 ×3; J2003; J3010; Q9967

== ENCOUNTER → 2024-05-27 | Outpatient (CLI) | payer MEDICARE ==
--- NOTE | 2024-05-27 16:52 | US ---
EXAMINATION TYPE: US kidneys/renal and bladder DATE OF EXAM: 05/27/2024 COMPARISON: NONE CLINICAL INDICATION: Male, 68 years old with history of N18.31 OTHER NONSPECIFIC ABNORMAL FINDING; ab n labs TECHNIQUE: Grayscale imaging of the bilateral kidneys and urinary bladder: FINDINGS: EXAM MEASUREMENTS: Right Kidney: 7.3x3.0x3.1 cm Left Kidney: 11.4x5.9x6.1 cm Right Kidney: small size, thin cortex no renal calculi and no hydronephrosis Left Kidney: cyst: 2.5x2.9x3.0cm no renal calculi and no hydronephrosis Bladder: wnl Bilateral Jets seen: Yes There is no evidence for hydronephrosis at this point in time. No nephrolithiasis is seen. The urin lanre bladder is anechoic. IMPRESSION: 1. No evidence for obstructive uropathy. 2. Left renal cysts. 3. Atrophic right kidney. [facility], , 05/27/2024 4:50 PM
== END | disposition home or self-care (01) ==
LOC: RADUSWWP 16:08
PROVIDERS: ATTEND Family Medicine
DX: N18.31 Chronic kidney disease, stage 3a (principal); N28.1 Cyst of kidney, acquired; N26.1 Atrophy of kidney (terminal)
CPT/HCPCS: 76770

== ENCOUNTER → 2024-10-10 | Outpatient (CLI) | payer MEDICARE ==
--- NOTE | 2024-10-11 09:18 | CTL ---
EXAMINATION TYPE: CT Low Dose Lung DATE OF EXAM ORDERED: 10/10/2024 COMPARISON: CT Low Dose Lung 09/11/2023, 08/28/2020, 06/17/2019, CTA chest 07/22/2021 CLINICAL INDICATION: Male, 69 years old with history of Z12.2 SCREENING F17.210 CURR SMOKER; PHH, Cur rent smoker, 1 ppd x 57 years., Lung cancer screening, History of Smoking/tobacco use. TECHNIQUE: Low dose computed tomography scan was performed through the chest at 1 mm thick sections a nd reconstructed images in multiple planes at 1 mm and [address] DLP: 101.[address] CTDI: 2.8 mGy Automated exposure control for dose reduction was used. CT DIAGNOSTIC QUALITY: Satisfactory FINDINGS: Nodules: Increasing size of subpleural right lower lobe 8 mm irregular groundglass density (series 6, image 39 ). No new pulmonary nodules. LUNGS: COPD: Severity: Moderate Fibrosis: Severity: Mild Lymph nodes: None Other findings: None RIGHT PLEURAL SPACE: Effusion: None Calcification: None Thickening: None Pneumothorax: None LEFT PLEURAL SPACE: Effusion: None Calcification: None Thickening: None Pneumothorax: None HEART: Heart Size: Normal Coronary Calcification: Severe coronary artery calcification and/or stents. Pericardial Effusion: None OTHER FINDINGS: Upper abdomen: None Bony thorax: Mild multilevel degenerative disc disease. Supraclavicular region: None Other: Atherosclerotic calcification of the aorta and its branches. Bilateral gynecomastia. Metallic clip anterior to the lower sternum within the subcutaneous tissues. Dilated aortic root measuring up to 4.0 cm again. IMPRESSION: 1. Marginal increase in size of irregular right lower lobe subpleural groundglass opacity. May repre sent an infectious/inflammatory process. 2. Stable aneurysmal dilatation of the aortic root. 3. Moderate emphysematous changes with mild fibrotic changes. CT LUNG RAD AND CT CHEST RECOMMENDATION: Lung-Rad 3 Probably Benign: 6 month follow-up LDCT. S Modifier (other clinically significant findings): None [facility], , 10/11/2024 9:15 AM
== END | disposition home or self-care (01) ==
LOC: RADCTMAIN 15:26
PROVIDERS: ATTEND Family Medicine
DX: Z12.2 Encounter for screening for malignant neoplasm of respiratory organs (principal); F17.210 Nicotine dependence, cigarettes, uncomplicated; R91.8 Other nonspecific abnormal finding of lung field; J43.9 Emphysema, unspecified; I77.810 Thoracic aortic ectasia; J84.10 Pulmonary fibrosis, unspecified
CPT/HCPCS: 71271